=== PATIENT | female | born 1980 | race Caucasian/White ===

== ENCOUNTER 2021-03-08 08:05 | Day surgery (SDCO) | payer OTHER ==
[~2021-03-08 08:05] MED LIST: BIOTIN1 M1 PO; CENTRUM ADULTS1 EACH PO; HYDROXYCHLOROQ200 MG PO; MONTELUKAST SOD10 MG PO; NAPROXEN500 MG PO; NEURONTIN100 MG PO; OS-CAL500 MG PO; PRILOSEC20 MG PO; STOOL SOFTENER50 MG PO; VITAMIN D250000 UNIT PO; ZYRTEC10 M3 PO
[2021-03-08 08:18] LABS: HCG (URINE) SCREEN NEGATIVE (NEGATIVE)
[2021-03-08] MEDS ORDERED: OMEGA 3 FISH OIL PO (08:21)
[2021-03-08 09:06] LABS: HCT 38.8 % (37.0-47.0); HGB 13.4 g/dl (12.5-16.0); MCH 31.3 pg (25.0-31.0); MCHC 34.5 g/dL (32.0-36.0); MCV 90.7 fL (78.0-100.0); MPV 10.8 fL (6.0-9.5); RBC 4.28 M/uL (4.20-5.40); RDW 12.9 % (11.5-14.0); WBC 7.5 K/uL (4.0-10.5)
[2021-03-08 09:29] LABS: ALBUMIN 3.8 g/dL (3.4-5.0); BILIRUBIN - TOTAL 0.8 mg/dL (0.2-1.0); BUN/CREAT RATIO (CALC) 21.5 RATIO; CREATININE 0.79 mg/dL (0.51-0.95); GLOBULIN (CALCULATION) 3.1 g/dL; POTASSIUM 3.5 mmol/L (3.5-5.1); TOTAL PROTEIN 6.9 g/dL (6.4-8.2)
[2021-03-09 06:02] LABS: BASOPHIL 0.3 % (0-2); EOSINOPHIL 1.7 % (0-5); HCT 33.2 % (37.0-47.0); HGB 11.2 g/dl (12.5-16.0); LYMPHOCYTE 12.2 % (15-48); MCHC 33.7 g/dL (32.0-36.0); MONOCYTE 9.1 % (0-12); NEUTROPHIL 76.3 % (41-80); NRBC 0; PLT 171 K/uL (150-400); RBC 3.61 M/uL (4.20-5.40); WBC 7.8 K/uL (4.0-10.5)
[2021-03-09 06:18] LABS: ALBUMIN 2.8 g/dL (3.4-5.0); BILIRUBIN - TOTAL 0.6 mg/dL (0.2-1.0); BUN/CREAT RATIO (CALC) 11.8 RATIO; CREATININE 0.85 mg/dL (0.51-0.95); GLOBULIN (CALCULATION) 2.9 g/dL; POTASSIUM 3.6 mmol/L (3.5-5.1); TOTAL PROTEIN 5.7 g/dL (6.4-8.2)
[2021-03-09] MEDS ORDERED: IBUPROFEN600 MG PO (10:52)
[2021-03-09] MEDS ORDERED: COLACE100 MG PO (10:52)
[2021-03-09] MEDS ORDERED: PERCOCET 5-3251 EACH PO (10:52)
== END 2021-03-09 11:45 | disposition home or self-care (01) ==
LOC: FSDC 08:05 → FMS 12:02
PROVIDERS: ADMIT Obstetrics & Gynecology
DX: D25.1 Intramural leiomyoma of uterus (principal); N80.0 Endometriosis of uterus; J45.909 Unspecified asthma, uncomplicated; K44.9 Diaphragmatic hernia without obstruction or gangrene; K64.8 Other hemorrhoids; K58.9 Irritable bowel syndrome, unspecified; M85.80 Other specified disorders of bone density and structure, unspecified site; M79.7 Fibromyalgia; G47.30 Sleep apnea, unspecified; E78.1 Pure hyperglyceridemia; F17.210 Nicotine dependence, cigarettes, uncomplicated; Z30.46 Encounter for surveillance of implantable subdermal contraceptive; Z87.19 Personal history of other diseases of the digestive system; Z20.822 Contact with and (suspected) exposure to COVID-19; Z97.5 Presence of (intrauterine) contraceptive device; Z91.048 Other nonmedicinal substance allergy status; Z98.890 Other specified postprocedural states; Z90.49 Acquired absence of other specified parts of digestive tract; Z99.89 Dependence on other enabling machines and devices
CPT/HCPCS: 36415; 80053; 84703; 85025; 86850; 86900; 86901; G0378; J0690; J1170; J1885; J2250; J2405; J2704; J2710; J3010; J3490; J7120; J7121